=== PATIENT | female | born 1950 | race Caucasian/White ===

== ENCOUNTER → 2021-03-16 | Outpatient (CLI) | payer MEDICARE ==
--- NOTE | 2021-03-16 15:59 | CARD ---
MR#: [id number] Date of Study: 03/16/2021 Ordering Physician: REGI JIMENEZ, Referring Physician: RGEI JIMENEZ Tech: Lizzy Walker [facility] APPROVED REPORT EXAM: Two-dimensional and M-mode echocardiogram with Doppler and color Doppler. INDICATION COPD Dyspnea RISK FACTORS Hypertension 2D DIMENSIONS RVDd3.1 (2.9-3.5cm)Left Atrium(2D)3.1 (1.6-4.0cm) IVSd1.2 (0.7-1.1cm)Aortic Root(2D)3.2 (2.0-3.7cm) LVDd3.9 (3.9-5.9cm)LVOT Diameter2.1 (1.8-2.4cm) PWd0.9 (0.7-1.1cm)LVDs1.9 (2.5-4.0cm) FS (%) 50.8 %SV55.4 ml LVEF(%)82.6 (>50%) Aortic Valve AoV Peak Steven.113.7cm/Fuad Peak GR.5.2mmHg LVOT Peak Steven.138.5cm/sAVA (VMAX)4.21cm2 Mitral Valve MV E Hyclbgxw95.9cm/sMV DECEL BBAK039ot MV A Sblqfetg135.4cm/sE/A Ratio0.5 Pulmonary Valve PV Peak Mfhvcdci656.6cm/s LEFT VENTRICLE The left ventricle is normal size. There is mild concentric left ventricular hypertrophy. The left ve ntricular systolic function is normal. Estimated ejection fraction 60-65%. There is normal LV segmen kalin wall motion. Transmitral Doppler flow pattern is Grade I-abnormal relaxation pattern. RIGHT VENTRICLE The right ventricle is normal size. There is normal right ventricular wall thickness. The right ventr icular systolic function is normal. ATRIA The left atrium size is normal. The right atrium size is normal. The interatrial septum is intact wit h no evidence for an atrial septal defect or patent foramen ovale as noted on 2-D or Doppler imaging. AORTIC VALVE The aortic valve is normal in structure and function. Doppler and Color Flow revealed no significant aortic regurgitation. There is no significant aortic valvular stenosis. MITRAL VALVE The mitral valve is normal in structure and function. There is no evidence of mitral valve prolapse. There is no mitral valve stenosis. Doppler and Color Flow revealed no mitral valve regurgitation note d. TRICUSPID VALVE The tricuspid valve is normal in structure and function. Doppler and Color Flow revealed no tricuspid valve regurgitation noted. There is no tricuspid valve stenosis. PULMONIC VALVE The pulmonary valve is normal in structure and function. Doppler and Color Flow revealed no pulmonic valvular regurgitation. GREAT VESSELS The aortic root is normal in size. The ascending aorta is normal in size. The IVC is normal in size a nd collapses >50% with inspiration. PERICARDIAL EFFUSION There is no evidence of significant pericardial effusion. Critical Notification Critical Value: No <Conclusion> The left ventricular systolic function is normal. Estimated ejection fraction 60-65%. There is normal LV segmental wall motion. Transmitral Doppler flow pattern is Grade I-abnormal relaxation pattern. There is no evidence of significant pericardial effusion. Signed by : Regi Jimenez, Electronically Approved : 03/16/2021 15:59:10
== END ==
LOC: ECHO 14:08
PROVIDERS: ATTEND Internal Medicine Cardiovascular Disease
DX: I11.9 Hypertensive heart disease without heart failure (principal)
CPT/HCPCS: 93306